=== PATIENT | female | born 1975 | race Caucasian/White ===

== ENCOUNTER 2017-03-27 18:59 | Observation (INO) | payer OTHER ==
[~2017-03-27] VITALS: Ht 165.1 cm; Wt 100.0 kg
--- NOTE | 2017-03-27 21:40 | ED ORDER SUMMARY ---
..... Patient: ANA HERMAN OrderSheet [facility] VisitID: [id number] [address] [place] [address] 41y, F Registration Date/Time: 03/27/2017 ORDER SHEET Weight: 99.7 kg (stated) Allergies: Aspirin GENERAL ORDERS: CBC w Diff Urgent (19:03/27/2017 HSoule per protocol) (Ack 19:38 AMcQuoid ER Tech1) (19:38 AMcQuoid ER Tech1) CMP Urgent (19:03/27/2017 HSoule per protocol) (Ack 19:38 AMcQuoid ER Tech1) (19:38 AMcQuoid ER Tech1) Amylase Urgent (19:03/27/2017 HSoule per protocol) (Ack 19:38 AMcQuoid ER Tech1) (19:38 AMcQuoid ER Tech1) Lipase Urgent (19:03/27/2017 HSoule per protocol) (Ack 19:38 AMcQuoid ER Tech1) (19:38 AMcQuoid ER Tech1) UA-Culture if indicated Urgent (19:22 03/27/2017 HSoule per protocol) (Ack 19:38 AMcQuoid ER Tech1) (21:13 HSoule) Urine Urgent (19:22 03/27/2017 HSoule per protocol) (Ack 19:38 AMcQuoid ER Tech1) (21:13 HSoule) US Abdomen Limited (No) Urgent (20:14 03/27/2017 HBivens A.R.N.P.) (Ack 20:16 AMcQuoid ER Tech1) (21:24 HSoule) CPK Urgent (20:41 03/27/2017 HBivens A.R.N.P.) (21:04 AMcQuoid ER Tech1) Troponin-I Urgent (20:41 03/27/2017 HBivens A.R.N.P.) (21:04 AMcQuoid ER Tech1) MEDICATION ORDERS: IV FLUIDS: IV Saline Lock (19:22 03/27/2017 HSoule per protocol) (19:22 HSoule) Toradol IV 30 mg (NOW) (20:14 03/27/2017 HBivens A.R.N.P.) (Ack 20:17 Nic R.N.) (20:21 HSoule) Zofran IV 4 mg (NOW) (20:14 03/27/2017 HBivens A.R.N.P.) (Ack 20:17 Nic R.N.) (20:21 HSoule) Dilaudid IV 1 mg (HIGH ALERT MEDICATION, NOW) (21:05 03/27/2017 HBivens A.R.N.P.) (Ack 21:13 HSoule) (Hold 21:31 HSoule) (Cancelled: Patient Refusal3:56 HSoule) ORDER SHEET NOTES: [Electronically signed by Bradley Brush R.N. (04:08 03/28/2017)] [Electronically signed by Johana DwyerRIvanN.PIvan (11:13 03/30/2017)] [Electronically locked/signed by Bradley Brush R.N. (04:08 03/28/2017)]
--- NOTE | 2017-03-27 21:40 | ED ORDER SUMMARY ---
..... Patient: ANA HERMAN OrderSheet [facility] VisitID: [id number] [address] [place] [address] 41y, F Registration Date/Time: 03/27/2017 ORDER SHEET Weight: 99.7 kg (stated) Allergies: Aspirin GENERAL ORDERS: CBC w Diff Urgent (19:03/27/2017 HSoule per protocol) (Ack 19:38 AMcQuoid ER Tech1) (19:38 AMcQuoid ER Tech1) CMP Urgent (19:03/27/2017 HSoule per protocol) (Ack 19:38 AMcQuoid ER Tech1) (19:38 AMcQuoid ER Tech1) Amylase Urgent (19:03/27/2017 HSoule per protocol) (Ack 19:38 AMcQuoid ER Tech1) (19:38 AMcQuoid ER Tech1) Lipase Urgent (19:03/27/2017 HSoule per protocol) (Ack 19:38 AMcQuoid ER Tech1) (19:38 AMcQuoid ER Tech1) UA-Culture if indicated Urgent (19:22 03/27/2017 HSoule per protocol) (Ack 19:38 AMcQuoid ER Tech1) (21:13 HSoule) Urine Urgent (19:22 03/27/2017 HSoule per protocol) (Ack 19:38 AMcQuoid ER Tech1) (21:13 HSoule) US Abdomen Limited (No) Urgent (20:14 03/27/2017 HBivens A.R.N.P.) (Ack 20:16 AMcQuoid ER Tech1) (21:24 HSoule) CPK Urgent (20:41 03/27/2017 HBivens A.R.N.P.) (21:04 AMcQuoid ER Tech1) Troponin-I Urgent (20:41 03/27/2017 HBivens A.R.N.P.) (21:04 AMcQuoid ER Tech1) MEDICATION ORDERS: IV FLUIDS: IV Saline Lock (19:22 03/27/2017 HSoule per protocol) (19:22 HSoule) Toradol IV 30 mg (NOW) (20:14 03/27/2017 HBivens A.R.N.P.) (Ack 20:17 Nic R.N.) (20:21 HSoule) Zofran IV 4 mg (NOW) (20:14 03/27/2017 HBivens A.R.N.P.) (Ack 20:17 Nic R.N.) (20:21 HSoule) Dilaudid IV 1 mg (HIGH ALERT MEDICATION, NOW) (21:05 03/27/2017 HBivens A.R.N.P.) (Ack 21:13 HSoule) (Hold 21:31 HSoule) (Cancelled: Patient Refusal3:56 HSoule) ORDER SHEET NOTES: [Electronically signed by Bradley Brush R.N. (04:08 03/28/2017)] [Electronically signed by Johana DwyerRIvanN.PIvan (11:13 03/30/2017)] [Electronically locked/signed by Bradley Brush R.N. (04:08 03/28/2017)]
--- NOTE | 2017-03-27 21:40 | ED CLINICAL REPORT ---
Clinical Report - Physicians/Mid Levels [facility] [address] [place] [address] 03/27/2017 19:02 Patient: ANA HERMAN Time Seen: 20:07; initial patient contact, initial documentation, patient care assumed. Arrived- By private vehicle. Historian- patient. HISTORY OF PRESENT ILLNESS Chief Complaint: ABDOMINAL PAIN. At its maximum, severity described as severe. When seen in the E.D., severity described as severe. Modifying factors. Not worsened by anything. Not relieved by anything. 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 The patient has had nausea. No loss of appetite, vomiting or diarrhea. No recent travel. Similar symptoms previously: Frequently, milder. ( x3 episodes this month). Recent medical care: Not recently seen/assessed. REVIEW OF SYSTEMS No constipation, black stools, hematemesis, difficulty with urination or pain with urination. No urinary frequency, bloody stools, fever, chest pain or difficulty breathing. Denies current . All systems otherwise negative, except as recorded above. PAST HISTORY Negative. SOCIAL HISTORY Never smoker. No alcohol use or drug use. No recent travel. Is a local resident. FAMILY HISTORY Negative. ADDITIONAL NOTES The nursing notes have been reviewed with agreement regarding the chief complaint, HPI, ROS, PMH and patient medications and allergies. PHYSICAL EXAM Vital Signs: 03/27/2017 19:14 BP: 165/87. HR: 70. RR: 20. O2 saturation: 97%. Temp: 97.8 F. Pain level now: 7/10. Have been reviewed as normal and appear to be correct. Appearance: Alert. Oriented X3. No acute distress. Eyes: Pupils equal, round and reactive to light. Eyes normal inspection. Neck: Normal inspection. Neck supple. CVS: Normal heart rate and rhythm. Heart sounds normal. Pulses normal. Respiratory: No respiratory distress. Breath sounds normal. Chest nontender. Abdomen: Soft. Moderate tenderness in the right upper quadrant and epigastric area. Bowel sounds normal. No organomegaly. No mass. Tenderness present. Back: Normal inspection. Skin: Skin warm and dry. Normal skin color. No rash. Normal skin turgor. Extremities: Extremities exhibit normal ROM. No lower extremity edema. Neuro: Oriented X 3. No motor deficit. No sensory deficit. LABS, X-RAYS, AND EKG EKG: EKG time: (2037). No acute process. No acute ischemia. Normal EKG. Narrow-complex bradycardia (51). Sinus bradycardia. Interpretation time: 2039. Laboratory Tests: UA-Culture if indicated: (VIBHA: 03/27/2017 20:00) ( [facility] 03/27/2017 20:36) Final results Test Result Flag Units (Reference) URINE COLOR YELLOW URINE APPEARANCE CLEAR URINE GLUCOSE NEGATIVE (NEGATIVE) URINE BILIRUBIN NEGATIVE (NEGATIVE) URINE KETONE NEGATIVE (NEGATIVE) URINE SPECIFIC GRAVITY 1.025 (1.010-1.030) URINE PH 6.0 (5.0-8.0) URINE PROTEIN NEGATIVE (NEGATIVE) URINE UROBILINOGEN 0.2 EU/dL (0.2-1.0) URINE NITRITE NEGATIVE (NEGATIVE) URINE BLOOD TRACE-INTACT (NEGATIVE) URINE LEUK ESTERASE NEGATIVE (NEGATIVE) URINE RBC RARE rbc/hpf (0-1) URINE WBC 1-3 wbc/hpf (0-1) URINE EPITHELIAL CELLS 3-5 EPI/hpf (0-5) URINE BACTERIA FEW (1+) (NONE SEEN) URINE COMMENT CULT NOT INDICATED 1+ MUCUSURINE CULTURES ARE SET-UP BASED ON THE FOLLOWING CRITERIA:POSITIVE NITRITEPOSITIVE LEUKOCYTE ESTERASEGREATER THAN 10 WHITE BLOOD CELLSMODERATE (2+) OR GREATER BACTERIA Urine: (VIBHA: 03/27/2017 20:00) ( [facility] 03/27/2017 20:17) Final results Test Result Flag Units (Reference) URINE NEGATIVE CBC w Diff: (VIBHA: 03/27/2017 19:22) ( [facility] 03/27/2017 19:43) Final results Test Result Flag Units (Reference) WHITE BLOOD COUNT 5.9 K/uL (4.5-11.5) RED BLOOD COUNT 4.25 M/uL (4.00-5.20) HEMOGLOBIN 10.8 L gm/dL (12.0-16.0) HEMATOCRIT 32.9 L % (36.0-46.0) MEAN CELL VOLUME 77 L fL (80-100) MEAN CORPUSCULAR HGB 25 L pg (26-34) MEAN CORPUSCULAR HGB CONC 33 g/dL (31-37) RED CELL DISTRIBUTION WIDTH 17.3 H % (11.6-14.8) PLATELET COUNT 339 K/uL (150-400) NEUTROPHIL % 62.4 % (50-75) LYMPH % 27.8 % (25-40) MONO % 7.5 % (3-14) EOSINOPHIL % 1.8 % (0-4) BASOPHIL % 0.5 % (0-2) CMP: (VIBHA: 03/27/2017 19:22) ( MsgRcvd 03/27/2017 20:12) Final results Test Result Flag Units (Reference) GLUCOSE 115 H mg/dL (70-110) BUN 15 mg/dL (7-18) CREATININE 1.1 mg/dL (0.6-1.3) Estimated GFR 57.62 mL/min Estimated GFR- >60 mL/min Note: Persistent reduction over 3 months in eGFR<60 mL/min/1.73 m2 defines CKD. Patients with eGFR values>=60 mL/min/1.73 m2 may also have CKD if evidence ofpersistent proteinuria. Additional information may be foundat www.kidney.org. SODIUM 145 mmol/L (136-145) POTASSIUM 3.5 mmol/L (3.5-5.1) CHLORIDE 106 mmol/L (98-107) CARBON DIOXIDE 26 mmol/L (21-32) CALCIUM 8.7 mg/dL (8.5-10.1) TOTAL PROTEIN 7.3 g/dL (6.4-8.2) ALBUMIN 3.5 g/dL (3.3-5.0) BILIRUBIN, TOTAL 0.3 mg/dL (0.0-1.0) ALKALINE PHOSPHATASE 63 U/L (46-116) AST (SGOT) 16 U/L (15-37) ALT (SGPT) 22 U/L (12-78) LIPASE 165 U/L (73-393) AMYLASE 50 U/L (25-115) . PROGRESS AND PROCEDURES Course of Care: 20:40 03/27/17. nurse reporting when she gave zofran, the pt's heart rate decreased so she had tech do ekg. Discussed case with on-call health care provider, ([address] Porras, surgeon). Agreed upon treatment plan and decision to admit. Health care provider will see patient in hospital. Differential Diagnosis: I considered gastritis, gastroenteritis, peptic ulcer disease, gastroesophageal reflux disease, diverticulitis, colon cancer, ulcerative colitis, biliary colic, cholecystitis, cholelithiasis, hepatitis, pancreatitis, common bile duct obstruction, urinary tract infection, ureterolithiasis and viral syndrome as a possible cause of abdominal pain in this patient. This is a partial list of diagnoses considered. Above considerations are based on history, physical exam, reassessment, laboratory data and other information. Differential diagnosis was discussed with patient. Disposition: Condition: good and stable. CLINICAL IMPRESSION Acute right upper quadrant abdominal pain. Cholelithiasis with acute cholecystitis. No obstruction. (Electronically signed by Johana Dwyer A.R.N.P. 03/30/2017 11:13)
--- NOTE | 2017-03-27 21:40 | ED NURSING NOTES ---
Clinical Report - Nurses [facility] [address] [place] [address] 03/27/2017 19:02 Patient: ANA HERMAN TRIAGE Triage time 19:14 Mar 27 2017. Acuity: LEVEL 3. Chief Complaint: ABDOMINAL PAIN and NAUSEA. 19:18 03/27/17. SEPSIS SCREEN: Sepsis Screen: negative. Negative (no infection suspected/documented). TUSHAR COMA SCORE: Tushar Coma Scale: 15- eyes open spontaneously (4); best verbal response- oriented x 4 (5); best motor response- obeys commands (6). --19:18 Nilda Morgan 19:14 03/27/17. BP: 165/87. HR: 70. RR: 20. O2 saturation: 97% on room air. Temp: 97.8 F (oral). Pain level now: 10. --19:18 Nilda Morgan. Weight: 99.7 kg stated. Height/Length: 65 inches Per Patient. BMI: 36.6. --19:18 Nilda Morgan. Medications None. --19:17 Nilda Morgan. Allergies Aspirin.(hives) --19:17 Nilda Morgan. History Arrived by private vehicle. Historian: patient. Unaccompanied. Primary physician ( [place]). This started today. This is a recurrent problem. ( Patient reports onset of right upper quadrant pain three hours ago. She states she has had "attacks" over the past few months. She). PAST MEDICAL HX: Immunizations: up-to-date. Last normal menstrual period- This . SOCIAL HX: Never smoker. No alcohol use or drug use. No recent travel. No infectious disease exposure. No known contact with a sick individual. ABUSE ASSESSMENT: No report of abuse. FALL RISK ASSESSMENT: Fall risk assessment completed. No fall risk identified. NUTRITIONAL RISK ASSESSMENT: The nutritional risk assessment revealed no deficiencies. FUNCTIONAL ASSESSMENT: Functional assessment: no impairments noted. LEARNING NEEDS ASSESSMENT: The learning needs assessment revealed no barriers. SKIN INTEGRITY ASSESSMENT: Skin integrity risk assessment completed. No skin integrity risk identified. --19:18 Nilda Morgan. PROBLEMS: no known problems. ADDITIONAL SURGERIES: no known surgeries. Interventions ID band on patient. To treatment room. --: Nilda Morgan. PHYSICAL ASSESSMENT :03/27/17. Patient gowned. GENERAL / NEURO / PSYCH: Alert. Oriented X 4. Appears in pain. HEENT: Mucous membranes are pink. RESPIRATORY: Respirations not labored. CVS: Normal sinus rhythm noted. GI / : Abdomen soft. Abdominal tenderness in the upper abdomen and right upper quadrant. SKIN: Skin is warm and dry. --19: Nilda Morgan. NURSING PROGRESS NOTES :03/27/17. Pulse oximeter and NIBP monitor placed on patient; monitor alarms on. Patient gowned. Reassurance given to the patient. Two patient identifiers checked. Call light placed in reach. Side rails up x 1. Bed placed in lowest position. Brakes of bed on. Patient ready for evaluation- chart flagged and ED physician notified. --19: Nilda Morgan 1903/27/2017 Site #1 started via IV in the left antecubital space with an 20g angiocath; one attempt. Blood drawn: rainbow set. Labeled in the presence of the patient and sent to the lab. Saline lock flushed with 10 mL saline. --: Nilda Morgan Patient ID band checked for patient name and birthdate: patient confirmed. Instructions provided to collect clean catch urine and patient verbalized understanding. Clean catch urine collected with return of yellow-colored clear urine; sample sent to lab for urinalysis and HCG. Specimen labeled in the presence of the patient. --20:00 Nilda Morgan 20:03/27/2017 Zofran (Ondansetron HCl) IVP 4 mg given over 2 minute(s) via site #1. Allergies verified and confirmed 5 rights. IV patency established. IV site checked: no pain, redness, or swelling. IV flushed thoroughly pre- and post-medication administration. IVP given by RN. --20: Nilda Morgan 20:03/27/2017 Toradol IVP 30 mg given over 1 minute(s) via site #1. Allergies verified and confirmed 5 rights. IV patency established. IV site checked: no pain, redness, or swelling. IV flushed thoroughly pre- and post-medication administration. IVP given by RN. --20:21 Nilda Morgan 20:21 03/27/17. BP: 158/76. HR: 65. RR: 20. O2 saturation: 97% on room air. Pain level now: 05/31. --20:21 Nilda Morgan 20:34 03/27/17. HR: 46. Additional comments: Provider notified, patient reports she is not dizzy or light headed. She reports her normal resting HR to be about 70. --20:35 Nilda Morgan EKG time: (20:38 Mar 27 2017). EKG was performed by a tech and shown to the ED physician. --20:35 Nilda Morgan master hearth technician placed on patient; monitor alarms on. --20:40 Nilda Morgan 21:02 03/27/17. BP: 147/73. HR: 53. RR: 20. O2 saturation: 100% on room air. --21:03 Nilda Morgan ( Ultrasound at bedside). --21:13 Nilda Morgan 22:59 03/27/17. BP: 133/65. HR: 60. RR: 20. O2 saturation: 97% on room air. Pain level now: 03/01. --23:00 Nilda Morgan. DISPOSITION / DISCHARGE 23:31 03/27/17. BP: 138/71. HR: 74. RR: 20. O2 saturation: 98% on room air. Pain level now: 03/31. --23:31 Nilda Morgan 23:20 03/27/17. Report was given to a nurse via a phone call. Report included patient's care, treatment, medications, reviewed medication reconcilliation, and condition (including any recent changes or anticipated changes). All questions were answered. Report was acknowledged and care was transferred. (MOISÉS Chand). --04:08 Bradley Brush R.N. 23:31 03/27/2017 Site #[address] upon admission; patent, no pain and no signs of infection or infiltration. Good blood return present. Converted to saline lock and flushed with 10 mL saline; flushes easily. --23:31 Luisa Morganh 23:31 03/27/17. Condition at departure: stable. The goals identified in the patient's plan of care were met. --23:31 Nilda Morgan Admitted to Acute Care (209). Patient's personal items include: shirt, pants, wallet and cell phone; items were transported with the patient. --23:32 Remigio Morgannah. Locked/Released at 03/28/2017 4:08 by Bradley Brush R.NIvan
--- NOTE | 2017-03-27 21:40 | ED CLINICAL REPORT ---
Clinical Report - Physicians/Mid Levels [facility] [address] [place] [address] 03/27/2017 19:02 Patient: ANA HERMAN Time Seen: 20:07; initial patient contact, initial documentation, patient care assumed. Arrived- By private vehicle. Historian- patient. HISTORY OF PRESENT ILLNESS Chief Complaint: ABDOMINAL PAIN. At its maximum, severity described as severe. When seen in the E.D., severity described as severe. Modifying factors. Not worsened by anything. Not relieved by anything. 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 The patient has had nausea. No loss of appetite, vomiting or diarrhea. No recent travel. Similar symptoms previously: Frequently, milder. ( x3 episodes this month). Recent medical care: Not recently seen/assessed. REVIEW OF SYSTEMS No constipation, black stools, hematemesis, difficulty with urination or pain with urination. No urinary frequency, bloody stools, fever, chest pain or difficulty breathing. Denies current . All systems otherwise negative, except as recorded above. PAST HISTORY Negative. SOCIAL HISTORY Never smoker. No alcohol use or drug use. No recent travel. Is a local resident. FAMILY HISTORY Negative. ADDITIONAL NOTES The nursing notes have been reviewed with agreement regarding the chief complaint, HPI, ROS, PMH and patient medications and allergies. PHYSICAL EXAM Vital Signs: 03/27/2017 19:14 BP: 165/87. HR: 70. RR: 20. O2 saturation: 97%. Temp: 97.8 F. Pain level now: 7/10. Have been reviewed as normal and appear to be correct. Appearance: Alert. Oriented X3. No acute distress. Eyes: Pupils equal, round and reactive to light. Eyes normal inspection. Neck: Normal inspection. Neck supple. CVS: Normal heart rate and rhythm. Heart sounds normal. Pulses normal. Respiratory: No respiratory distress. Breath sounds normal. Chest nontender. Abdomen: Soft. Moderate tenderness in the right upper quadrant and epigastric area. Bowel sounds normal. No organomegaly. No mass. Tenderness present. Back: Normal inspection. Skin: Skin warm and dry. Normal skin color. No rash. Normal skin turgor. Extremities: Extremities exhibit normal ROM. No lower extremity edema. Neuro: Oriented X 3. No motor deficit. No sensory deficit. LABS, X-RAYS, AND EKG EKG: EKG time: (2037). No acute process. No acute ischemia. Normal EKG. Narrow-complex bradycardia (51). Sinus bradycardia. Interpretation time: 2039. Laboratory Tests: UA-Culture if indicated: (VIBHA: 03/27/2017 20:00) ( [facility] 03/27/2017 20:36) Final results Test Result Flag Units (Reference) URINE COLOR YELLOW URINE APPEARANCE CLEAR URINE GLUCOSE NEGATIVE (NEGATIVE) URINE BILIRUBIN NEGATIVE (NEGATIVE) URINE KETONE NEGATIVE (NEGATIVE) URINE SPECIFIC GRAVITY 1.025 (1.010-1.030) URINE PH 6.0 (5.0-8.0) URINE PROTEIN NEGATIVE (NEGATIVE) URINE UROBILINOGEN 0.2 EU/dL (0.2-1.0) URINE NITRITE NEGATIVE (NEGATIVE) URINE BLOOD TRACE-INTACT (NEGATIVE) URINE LEUK ESTERASE NEGATIVE (NEGATIVE) URINE RBC RARE rbc/hpf (0-1) URINE WBC 1-3 wbc/hpf (0-1) URINE EPITHELIAL CELLS 3-5 EPI/hpf (0-5) URINE BACTERIA FEW (1+) (NONE SEEN) URINE COMMENT CULT NOT INDICATED 1+ MUCUSURINE CULTURES ARE SET-UP BASED ON THE FOLLOWING CRITERIA:POSITIVE NITRITEPOSITIVE LEUKOCYTE ESTERASEGREATER THAN 10 WHITE BLOOD CELLSMODERATE (2+) OR GREATER BACTERIA Urine: (VIBHA: 03/27/2017 20:00) ( [facility] 03/27/2017 20:17) Final results Test Result Flag Units (Reference) URINE NEGATIVE CBC w Diff: (VIBHA: 03/27/2017 19:22) ( [facility] 03/27/2017 19:43) Final results Test Result Flag Units (Reference) WHITE BLOOD COUNT 5.9 K/uL (4.5-11.5) RED BLOOD COUNT 4.25 M/uL (4.00-5.20) HEMOGLOBIN 10.8 L gm/dL (12.0-16.0) HEMATOCRIT 32.9 L % (36.0-46.0) MEAN CELL VOLUME 77 L fL (80-100) MEAN CORPUSCULAR HGB 25 L pg (26-34) MEAN CORPUSCULAR HGB CONC 33 g/dL (31-37) RED CELL DISTRIBUTION WIDTH 17.3 H % (11.6-14.8) PLATELET COUNT 339 K/uL (150-400) NEUTROPHIL % 62.4 % (50-75) LYMPH % 27.8 % (25-40) MONO % 7.5 % (3-14) EOSINOPHIL % 1.8 % (0-4) BASOPHIL % 0.5 % (0-2) CMP: (VIBHA: 03/27/2017 19:22) ( MsgRcvd 03/27/2017 20:12) Final results Test Result Flag Units (Reference) GLUCOSE 115 H mg/dL (70-110) BUN 15 mg/dL (7-18) CREATININE 1.1 mg/dL (0.6-1.3) Estimated GFR 57.62 mL/min Estimated GFR- >60 mL/min Note: Persistent reduction over 3 months in eGFR<60 mL/min/1.73 m2 defines CKD. Patients with eGFR values>=60 mL/min/1.73 m2 may also have CKD if evidence ofpersistent proteinuria. Additional information may be foundat www.kidney.org. SODIUM 145 mmol/L (136-145) POTASSIUM 3.5 mmol/L (3.5-5.1) CHLORIDE 106 mmol/L (98-107) CARBON DIOXIDE 26 mmol/L (21-32) CALCIUM 8.7 mg/dL (8.5-10.1) TOTAL PROTEIN 7.3 g/dL (6.4-8.2) ALBUMIN 3.5 g/dL (3.3-5.0) BILIRUBIN, TOTAL 0.3 mg/dL (0.0-1.0) ALKALINE PHOSPHATASE 63 U/L (46-116) AST (SGOT) 16 U/L (15-37) ALT (SGPT) 22 U/L (12-78) LIPASE 165 U/L (73-393) AMYLASE 50 U/L (25-115) . PROGRESS AND PROCEDURES Course of Care: 20:40 03/27/17. nurse reporting when she gave zofran, the pt's heart rate decreased so she had tech do ekg. Discussed case with on-call health care provider, ([address] Porras, surgeon). Agreed upon treatment plan and decision to admit. Health care provider will see patient in hospital. Differential Diagnosis: I considered gastritis, gastroenteritis, peptic ulcer disease, gastroesophageal reflux disease, diverticulitis, colon cancer, ulcerative colitis, biliary colic, cholecystitis, cholelithiasis, hepatitis, pancreatitis, common bile duct obstruction, urinary tract infection, ureterolithiasis and viral syndrome as a possible cause of abdominal pain in this patient. This is a partial list of diagnoses considered. Above considerations are based on history, physical exam, reassessment, laboratory data and other information. Differential diagnosis was discussed with patient. Disposition: Condition: good and stable. CLINICAL IMPRESSION Acute right upper quadrant abdominal pain. Cholelithiasis with acute cholecystitis. No obstruction. (Electronically signed by Johana Dwyer A.R.N.P. 03/30/2017 11:13)
--- NOTE | 2017-03-27 23:39 | DIAGNOSTIC IMAGING REPORT ---
PROCEDURE: US ABDOMEN ULTRASOUND-LIMITED INDICATION: RUQ PAIN TECHNIQUE: Novoa scale and color Doppler sonographic images of the abdomen were obtained. COMPARISON: None. FINDINGS: Multiple large mobile gallstones with gallbladder wall thickening (3.4 - 3.8 mm). Normal CBD measures 5 mm. Positive Quintero's sign. Normal liver. Head and body of the pancreas are within normal limits. Pancreatic tail is obscured by bowel gas. Aorta and IVC are patent. Normal hepatopetal flow. Normal right kidney measures 10.4 cm. IMPRESSION: 1. Cholelithiasis with gallbladder wall thickening and positive Quintero's sign suggestive of acute cholecystitis.
[2017-03-27 23:51] VITALS: BP 141/64
[2017-03-28] VITALS (11 sets, daily range): BP systolic 119–165; BP diastolic 54–92
--- NOTE | 2017-03-28 03:01 | NUR ---
PT. ARRIVED TO ROOM 209-A VIA ER STRETCHER AT APPROXIMATELY 2345 AND WAS ACCOMPANIED BY HER , WHO HAS LEFT HOME. PT. IS COOPERATIVE AND PLEASANT WITH CARE. C/O 4/10 ABDOMINAL PAIN, R SIDED UNDER RIB AREA. STATES IT IS AT AN ACCEPTABLE LEVEL AND DECLINES THE NEED FOR PAIN MEDICATION, BUT WILL NOTIFY THIS RN IF IT IS NEEDED. IV FLUIDS INFUSING WITHOUT ISSUES. DENIES NAUSEA. ASSESSMENT COMPLETED. WCTM.
[2017-03-28] MEDS ORDERED: IRON325 MG PO (03:13)
--- NOTE | 2017-03-28 10:15 | NUR ---
DR PALMA HERE TO CONSULT WITH PT. PREOP CHECKLIST DONE. PT DENIES PAIN AT THIS TIME. IV IS PATENT.
--- NOTE | 2017-03-28 10:21 | Consultation Report ---
History Chief Complaint Right upper quadrant abdominal pain History of Present Illness 41-year-old female who presented to the emergency room with approximately 8 hour of right upper quadrant abdominal pain. Pain radiating into her back. Associated with nausea but no vomiting. No diarrhea. No fever or chills. Patient states she did however feel clammy. This is her third attack within the last month. This wound however was the worst. MEDICATION: None PAST MEDICAL/SURGICAL HISTORY: The only hospitalization patient has had this for the of her children. Patient History 1. Cholecystitis, acute with cholelithiasis Social History . One son and 2 daughters alive and well. Patient does not smoke. Patient does not drink alcohol. Patient on occasionally will drink green tea. 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 FAMILY HISTORY: Mother age 72, history of heart disease. Father age 80, health more bouts unknown. 1 brother, one sister both are alive and well. Medications and Allergies Medications See prior dictation Current Medications Sig/Fabio Start time Last Medication Dose Route Stop Time Status Admin Famotidine/Sodium 50 ML Q12HR 03/28 0900 AC 05/07 Chloride IV 0836 Metoclopramide HCl 10 MG Q6HR 03/28 0000 AC / IV 0556 Cefotetan Disodium/ 50 ML Q12HR 03/27 2345 AC 05/07 Dextrose IV 0207 Cefotetan Disodium/ 50 ML .COLOR CONTROL OPERATOR TO OR 03/27 2330 AC Dextrose IV Lactated Ringer's 1,000 ML ASDIRECTED 03/27 2330 AC 05/07 IV 0953 Meperidine HCl 12.5 MG Q1H PRN 03/27 2330 AC IV Meperidine HCl 25 MG Q1H PRN 03/27 2330 AC IV Ondansetron HCl 4 MG Q6H PRN 03/27 2330 AC IV Ondansetron HCl 4 MG Q4H PRN 03/27 2230 CAN IV Allergies Coded Allergies: Aspirin (Severe, 03/28/17) Review of Systems Other AB 0. Menarche age 12. Her first full-term at age 19. Last menstrual period approximately one week ago. Last Pap smear 3 years ago. Last mammogram patient never had one. Patient never had a colonoscopy. Patient denies any history of hepatitis, jaundice, rheumatic fever, heart murmurs requiring antibiotics, bleeding tendencies, or blood transfusions. Remaining 12 point review of systems is negative. Physical Exam Vital Signs / I&Os Vital Signs Date Time Temp Pulse Resp B/P Pulse O2 O2 Flow FiO2 Ox Delivery Rate 03/28 0735 4.0 03/28 0713 99.1 82 17 122/54 93 Room Air 03/28 0324 4.0 03/28 0242 98.1 54 18 119/64 100 Nasal 4.0 Cannula 03/28 0156 4.0 03/27 2351 98.1 66 18 141/64 100 Room Air I&O 03/27 0800 03/27 1600 03/28 0000 Intake Total Output Total Balance General Appearance Alert, Oriented X3, Cooperative, No acute distress HEENT Atraumatic, PERRLA, EOMI, Moist mucous membranes Lungs Clear to auscultation Neck Supple, No JVD, No masses, No thyromegaly, No lymphadenopathy Cardiovascular Regular rate and rhythm Abdomen Normal bowel sounds, Soft, No masses Extremities No cyanosis, No edema Skin warm and dry Neurological No lateralizing signs Psych/Mental Status Mood normal LAB Results Laboratory Tests 03/27 03/27 03/27 03/27 [id number] Chemistry Plasma Sodium (136 - 145 mmol/L) 145 Plasma Potassium (3.5 - 5.1 mmol/L) 3.5 Plasma Chloride (98 - 107 mmol/L) 106 CO2 (Enzymatic) (21 - 32 mmol/L) 26 BUN (7 - 18 mg/dL) 15 Creatinine (0.6 - 1.3 mg/dL) 1.1 Est GFR ( Amer) (mL/min) >60 Est GFR (Non-Af Amer) (mL/min) 57.62 Glucose (70 - 110 mg/dL) 115 Plasma Calcium (8.5 - 10.1 mg/dL) 8.7 Total Bilirubin (0.0 - 1.0 mg/dL) 0.3 AST (15 - 37 U/L) 16 ALT (12 - 78 U/L) 22 Alkaline Phosphatase (46 - 116 U/L) 63 Creatine Kinase (24 - 260 U/L) 78 Troponin (0.00 - 1.5 ng/mL) <0.05 Total Protein (6.4 - 8.2 g/dL) 7.3 Albumin (3.3 - 5.0 g/dL) 3.5 Amylase (25 - 115 U/L) 50 Lipase (73 - 393 U/L) 165 Hematology WBC (4.5 - 11.5 K/uL) 5.9 RBC (4.00 - 5.20 M/uL) 4.25 Hgb (12.0 - 16.0 gm/dL) 10.8 Hct (36.0 - 46.0 %) 32.9 MCV (80 - 100 fL) 77 MCH (26 - 34 pg) 25 RDW (11.6 - 14.8 %) 17.3 Neut % (Auto) (50 - 75 %) 62.4 Lymph % (Auto) (25 - 40 %) 27.8 [place] % (Auto) (3 - 14 %) 7.5 Eos % (Auto) (0 - 4 %) 1.8 Baso % (Auto) (0 - 2 %) 0.5 Plt Count, EDTA (150 - 400 K/uL) 339 PUBS MCHC (31 - 37 g/dL) 33 Urines Urine Color YELLOW Urine Appearance CLEAR Urine pH (5.0 - 8.0) 6.0 Ur Specific [place] (1.010 - 1.030) 1.025 Urine Protein (NEGATIVE) NEGATIVE Urine Ketones (NEGATIVE) NEGATIVE Urine Blood (NEGATIVE) TRACE-INTACT Urine Nitrite (NEGATIVE) NEGATIVE Urine Bilirubin (NEGATIVE) NEGATIVE Urine Urobilinogen (0.2 - 1.0 EU/dL) 0.2 Ur Leukocyte Esterase (NEGATIVE) NEGATIVE Urine RBC (0 - 1 rbc/hpf) RARE Urine WBC (0 - 1 wbc/hpf) 1-3 Ur Epithelial Cells (0 - 5 EPI/hpf) 3-5 Urine Bacteria (NONE SEEN) FEW (1+) Urine Glucose (NEGATIVE) NEGATIVE Urine Test NEGATIVE Urine Comment CULT NOT INDICATED 03/28 05 0600 0644 Chemistry Total Bilirubin (0.0 - 1.0 mg/dL) 0.3 Alkaline Phosphatase (46 - 116 U/L) Cancelled 56 Lipase (73 - 393 U/L) 111 Hematology WBC (4.5 - 11.5 K/uL) 5.8 RBC (4.00 - 5.20 M/uL) 3.88 Hgb (12.0 - 16.0 gm/dL) 9.9 Hct (36.0 - 46.0 %) 30.2 MCV (80 - 100 fL) 78 MCH (26 - 34 pg) 25 RDW (11.6 - 14.8 %) 17.5 Neut % (Auto) (50 - 75 %) 55.9 Lymph % (Auto) (25 - 40 %) 34.1 [place] % (Auto) (3 - 14 %) 7.4 Eos % (Auto) (0 - 4 %) 1.9 Baso % (Auto) (0 - 2 %) 0.7 Plt Count, EDTA (150 - 400 K/uL) 265 PUBS MCHC (31 - 37 g/dL) 33 Imaging Ultrasound of the abdomen shows patient's gallbladder with multiple gallstones, 3 mm wall thickness. No pericholecystic fluid. Assessment and Plan Problem List 1. Cholecystitis, acute with cholelithiasis Plan The pathophysiology of gallbladder disease has been explained to the patient. Our recommendation is to proceed with laparoscopic cholecystectomy. The procedure has been The patient including complications which are but not exclusive of trocar site infection, hernia, conversion to open procedure, hemorrhage, transfusion, damage to local structures, retained stone, bile leak, damage to major ductal system, pancreatitis, pneumonia and pulmonary embolus. Patient understands and agrees to proceed and we'll schedule her appropriately.
--- NOTE | 2017-03-28 12:40 | Operative Report ---
Operative Report Date of Surgery: 03/28/17 Preoperate Diagnosis: acute cholecystitis, cholelithiasis Postoperative Diagnosis: acute cholecystitis, cholelithiasis Surgeon: Alverto Porras MD Sales Support Administrator Surgeon: none Procedure Performed: Laparoscopic cholecystectomy and fluoroscopic intraoperative cholangiogram with interpretation Anesthesia: Gen. endotracheal Indications: 41-year-old female with acute onset right upper quadrant abdominal pain. 3 prior episodes within the last month of similar symptoms. Liver function studies including total bilirubin now phosphatase and lipase normal. Ultrasound of her gallbladder showed thickened gallbladder wall, multiple gallstones but no pericholecystic fluid. FINDINGS: Thickened edematous gallbladder wall, multiple stones, hydrops of the gallbladder. Normal intraoperative cholangiogram with visualization of the intrahepatic ducts, hepatic duct, common bile duct, free flow of contrast material into the duodenum, no evidence of obstruction or retained stone. Surgical Technique: Patient brought to the operating room and placed in the dorsal supine position. Patient was administered general endotracheal anesthesia by the anesthesiology department. After proper anesthesia taken effect patient's abdomen was prepped using Betadine and draped in a sterile fashion. An infraumbilical incision made in the skin and down through the subcutaneous tissue. A Veress needle was inserted through this site and into the abdominal cavity. After ascertaining the appropriate position with suction irrigation a pneumoperitoneum was obtained using CO2 insufflation to approximate 14 15 mmHg pressure. The varices needle was removed and replaced with 10 mm trocar. The trocar removed leaving the sleeve behind. A laparoscopic video camera was introduced into the abdominal cavity. Under direct visualization a separate 10 mm trocar was placed in subxiphoid region. Two 5 mm trochars were placed in the anterior lateral abdominal wall approximately 3-4 fingerbreadths below the costal margin. Each trocar entered the abdominal cavity under direct visualization. Trochars removed leaving the sleeve behind through which laparoscopic instrumentation was introduced into the abdominal cavity. The aforementioned findings noted. The gallbladder grasped retracted cephalad. Using a combination of blunt dissection and electrocautery were able to circumferentially isolate the cystic duct. A clip was placed at the junction of the neck of the cystic duct and the gallbladder. Small incision made in the anterior surface of the cystic duct. Percutaneous cholangiocatheter was threaded through the anterior abdominal wall into the cystic duct and clipped into position. The fluoroscopic intraoperative cholangiogram was performed.. The aforementioned findings noted, the cholangiogram catheter was retrieved from the cystic duct and the abdominal cavity. The distal cystic duct was clipped in continuity divided. The cystic artery identified clipped continuity divided. The gallbladder was taken down from its bed in a retrograde fashion using electrocautery dissection. When the gallbladder was completely free from its bed, the gallbladder was placed in a sterile specimen container bag and retrieved from the abdominal cavity. The gallbladder specimen was sent to pathology. The gallbladder bed was inspected for hemostasis. The assuring ourselves of proper hemostasis, the right upper quadrant was irrigated copiously with normal saline antibiotic solution and irrigant suctioned out. Approximately 30 cc 0.5% Marcaine with epinephrine were sprayed over the right lobe of of the liver for postop analgesia. The pneumoperitoneum released. All trochars removed and the abdominal cavity. All trocar sites were approximated using 4-0 subcuticular Polysorb interrupted suture. Steri-Strips placed over the wound. Sterile occlusive dressing placed over each site. Patient tolerated procedure well. Patient was extubated and transferred recovery room in stable condition. There were no intraoperative anesthetic outpatient. CONDITION: Stable to postoperative anesthesia recovery room in COMPLICATIONS: None ESTIMATED BLOOD LOSS: None FLUIDS: 300 cc lactate Ringers SPECIMEN: Gallbladder and contents to pathology
--- NOTE | 2017-03-28 13:02 | NUR ---
LE; REC'D FROM OR; SPONT RESP. HOB ELEVATED 30 DEGREES. C/O MILD HEADACHE AND OP SITE DISCOMFORT. MEDS GIVEN WITH GOOD RESULTS.
--- NOTE | 2017-03-28 13:04 | DIAGNOSTIC IMAGING REPORT ---
PROCEDURE: XR INTRAOPERATIVE LAP ALEXANDER INDICATION: LAP ALEXANDER TECHNIQUE: Intraoperative fluoroscopy provided for Dr. Porras performing an intraoperative cholangiogram following cholecystectomy. Total fluoroscopy time 8 seconds. Cumulative dose 3.0 mGy. COMPARISON: Ultrasound 03/27/2017 FINDINGS: A single intraoperative fluoroscopic spot image of the right upper quadrant of the abdomen demonstrates cannulation of the cystic duct stump and opacification of the intrahepatic and extrahepatic biliary tree. There are no filling defects. There is normal passage of contrast into the duodenum. IMPRESSION: 1. Negative intraoperative cholangiogram.
--- NOTE | 2017-03-28 13:18 | NUR ---
PT REPORTS BEING HIGHLY ALLERGIC TO ASA; GIVES HER HIVES. THEREFORE AFTER CONSULTING WITH ANESTHESIA AND PHARMACY, LULY; TORADOL WAS NOT GIVEN. PT REFUSED.
--- NOTE | 2017-03-28 13:45 | NUR ---
RECEIVED PT FROM PACU. SHE HAD EMESIS OF BILE WHILE ATTEMPTING TO SIT UP ON GUERNEY. SHE AMBULATED TO BED. NAUSEA HAS SUBSIDED. O24L N/C INTACT. BTS ARE HYPOACTIVE. TROCHAR SITES ARE DRY AND INTACT. IV IS PATENT TO LAC WITH LR@125CC/HR. PT DENIES PAIN AT THIS TIME. SHE WAS EDUCATED ON INCENTIVE SPIROMETER, AMBULATING Q1 HOUR TILL 22OO AND THEN Q2 DURING NOC, ALSO OOB TO CHAIR WHEN TAKING PO. CLEAR LIQUIDS INITIATED. SHE IS ALERT AND ORIENTED.
--- NOTE | 2017-03-28 15:07 | Progress Note ---
Subjective General Admission History and Physical Examination Patient Name: Rosario Kiser Patient ID: [id number] Admission Date: March 28, 2017 Primary Care Provider: Unknown Attending Physician: Alex Rascon M.D. Admitting Physician: Alex Rascon M.D. Consulting physician: Alverto Porras M.D. Code Status: FULL CODE Room: 209 Status: In patient obs SUBJECTIVE Historian: Patient Reliability: Fair Chief Complaint: Shortness of breath, History of Present Illness: This is a 41-year-old female who presented to the emergency room with approximately 3 hour of right upper quadrant abdominal pain. She reported more right upper quadrant pain. She is also reporting of nausea. Patient had no emesis, diarrhea, no fever or chills. Patient reported feeling clammy. Patient states that she had multiple attacks over the past month. Emergency department CVH examined. Patient found a positive Quintero's sign. Ultrasound of the upper quadrant showed a cholelithiasis with gallbladder wall thickening and a positive Quintero sign. Patient was consulted by general surgery. Patient admitted under General medicine. Patient's findings in the ED here consistent with diagnosis of acute cholecystitis. Patient's admitted under Dr. Alex Rascon. PAST MEDICAL HISTORY Illnesses: Patient has no other medical health history patient is otherwise healthy Allergies: 1. Aspirin Medications: Patient takes no medication Surgery: No prior surgeries Injuries: 1. No significant Hospitalizations: 1. Patient had previous hospitalizations for childbirth, the last of which was 17 years ago. FAMILY HISTORY Parents: 1. Father, 80-year-old estranged father medical history unknown living. 2. Mother, 72, history of heart disease Siblings: 1 brother, one sister both are alive and wel Children: 1. 3 children, 17-21 years old SOCIAL HISTORY 1. Marital Status: 2. Voodoo: Unknown 3. 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 Occupational health exposures: Unknown HABITS 1. Tobacco: None 2. Drugs: None 3. Alcohol: None 4. Caffeine: None HEALTH SUPERVISION Item/Test unknown IMMUNIZATIONS: Unknown ADVANCED DIRECTIVES: 1. Living well: No 2. POLST: No 3. Code Status: FULL CODE 4. Durable Power Calender Feeder Health care: No 5. Donor card: No REVIEW OF SYSTEMS Remarkable for those things stated in the history of present illness and past medical history. Seventeen point review of system completed with the following notable findings: Constitutional Denies: Fever, Chills. Eyes Denies: Vision Change. ENT Denies: Ear Discharge. Respiratory Denies: SOB w/exertion, Wheezing. Cardiovascular Denies: Light-headedness. Gastrointestinal Denies: Abdominal Pain. Genitourinary Denies: Frequency. Physical Exam Vital Signs / I&Os Vital Signs Date Time Temp Pulse Resp B/P Pulse O2 O2 Flow FiO2 Ox Delivery Rate 03/28 1452 98.4 62 16 152/83 100 Nasal 4.0 Cannula 05/07 1420 98.4 55 16 157/85 100 Nasal 4.0 Cannula 05/07 1405 98.4 54 16 156/84 100 Nasal 4.0 Cannula 05/07 1350 65 20 165/82 100 Nasal 4.0 Cannula 05/07 1336 98.4 64 19 160/87 100 Nasal 4.0 Cannula 05/07 1321 98.8 66 19 158/84 100 05/07 1316 98.8 80 16 162/80 100 Nasal 2.0 Cannula 05/ 1310 69 19 162/82 100 05/07 1300 83 19 149/85 100 05/07 1255 75 27 149/85 100 nc 2.0 05/07 1248 69 26 149/84 100 05/07 1243 98.1 94 16 155/80 100 nc 2.0 05/07 1052 98.2 48 20 125/68 100 Room Air 05/07 0735 4.0 05/07 0713 98.2 52 19 124/65 100 Room Air 05/ 0324 4.0 05/07 0242 98.1 54 18 119/64 100 Nasal 4.0 Cannula 05/ 0156 4.0 05/06 2351 98.1 66 18 141/64 100 Room Air I&O / 0800 05/06 1600 05/07 0000 Intake Total Output Total Balance General Appearance Oriented X3, Cooperative, No acute distress HEENT PERRLA, EOMI Lungs Clear to auscultation, Normal air movement Neck Supple, No JVD Cardiovascular Regular rate and rhythm Abdomen No tenderness, Trocar incision sites. Tenderness is noted around the incision sites Extremities No edema, Normal pulses Skin No Rashes Psych/Mental Status Mood normal LAB Results Laboratory Tests 03/27 03/27 03/27 03/27 [id number] Chemistry Plasma Sodium (136 - 145 mmol/L) 145 Plasma Potassium (3.5 - 5.1 mmol/L) 3.5 Plasma Chloride (98 - 107 mmol/L) 106 CO2 (Enzymatic) (21 - 32 mmol/L) 26 BUN (7 - 18 mg/dL) 15 Creatinine (0.6 - 1.3 mg/dL) 1.1 Est GFR ( Amer) (mL/min) >60 Est GFR (Non-Af Amer) (mL/min) 57.62 Glucose (70 - 110 mg/dL) 115 Plasma Calcium (8.5 - 10.1 mg/dL) 8.7 Total Bilirubin (0.0 - 1.0 mg/dL) 0.3 AST (15 - 37 U/L) 16 ALT (12 - 78 U/L) 22 Alkaline Phosphatase (46 - 116 U/L) 63 Creatine Kinase (24 - 260 U/L) 78 Troponin (0.00 - 1.5 ng/mL) <0.05 Total Protein (6.4 - 8.2 g/dL) 7.3 Albumin (3.3 - 5.0 g/dL) 3.5 Amylase (25 - 115 U/L) 50 Lipase (73 - 393 U/L) 165 Hematology WBC (4.5 - 11.5 K/uL) 5.9 RBC (4.00 - 5.20 M/uL) 4.25 Hgb (12.0 - 16.0 gm/dL) 10.8 Hct (36.0 - 46.0 %) 32.9 MCV (80 - 100 fL) 77 MCH (26 - 34 pg) 25 RDW (11.6 - 14.8 %) 17.3 Neut % (Auto) (50 - 75 %) 62.4 Lymph % (Auto) (25 - 40 %) 27.8 [place] % (Auto) (3 - 14 %) 7.5 Eos % (Auto) (0 - 4 %) 1.8 Baso % (Auto) (0 - 2 %) 0.5 Plt Count, EDTA (150 - 400 K/uL) 339 PUBS MCHC (31 - 37 g/dL) 33 Urines Urine Color YELLOW Urine Appearance CLEAR Urine pH (5.0 - 8.0) 6.0 Ur Specific [place] (1.010 - 1.030) 1.025 Urine Protein (NEGATIVE) NEGATIVE Urine Ketones (NEGATIVE) NEGATIVE Urine Blood (NEGATIVE) TRACE-INTACT Urine Nitrite (NEGATIVE) NEGATIVE Urine Bilirubin (NEGATIVE) NEGATIVE Urine Urobilinogen (0.2 - 1.0 EU/dL) 0.2 Ur Leukocyte Esterase (NEGATIVE) NEGATIVE Urine RBC (0 - 1 rbc/hpf) RARE Urine WBC (0 - 1 wbc/hpf) 1-3 Ur Epithelial Cells (0 - 5 EPI/hpf) 3-5 Urine Bacteria (NONE SEEN) FEW (1+) Urine Glucose (NEGATIVE) NEGATIVE Urine Test NEGATIVE Urine Comment CULT NOT INDICATED 03/28 03/28 0600 0644 Chemistry Total Bilirubin (0.0 - 1.0 mg/dL) 0.3 Alkaline Phosphatase (46 - 116 U/L) Cancelled 56 Lipase (73 - 393 U/L) 111 Hematology WBC (4.5 - 11.5 K/uL) 5.8 RBC (4.00 - 5.20 M/uL) 3.88 Hgb (12.0 - 16.0 gm/dL) 9.9 Hct (36.0 - 46.0 %) 30.2 MCV (80 - 100 fL) 78 MCH (26 - 34 pg) 25 RDW (11.6 - 14.8 %) 17.5 Neut % (Auto) (50 - 75 %) 55.9 Lymph % (Auto) (25 - 40 %) 34.1 [place] % (Auto) (3 - 14 %) 7.4 Eos % (Auto) (0 - 4 %) 1.9 Baso % (Auto) (0 - 2 %) 0.7 Plt Count, EDTA (150 - 400 K/uL) 265 PUBS MCHC (31 - 37 g/dL) 33 Assessment and Plan Problem List 1. Abdominal pain Plan Patient is admitted under hospitalist service. Patient is admitted for abdominal pain, acute cholecystitis associated nausea. Normal routine nursing contacts IV fluids. Repeat labs in the a.m. Consulting general surgery. Address need for a cholecystectomy. 2. Nausea Plan Nausea associated with acute illness. Appropriate antinausea such as ondansetron. Pain control. Introduce by mouth slowly. 3. Cholecystitis, acute with cholelithiasis Plan Consulting surgery; image showing thickened gallbladder freeman. Patient was seen us. Cholecystectomy. Patient is doing well without complications related to the surgical procedure. Patient has sent tenderness over the incision site. Diabetes, followed by general surgery and will be introduced slowly. E&M Codes Rounding: Obsv-Comp/Moderate/[id number]
--- NOTE | 2017-03-28 16:14 | NUR ---
PT HAS BEEN OOB AND AMBULATING IN HALLWAY Q 1HOUR AND IS TOLERATING IT WELL. SHE STATES SHE HAS MILD PAIN. SHE IS TOLERATING CLEAR LIQUIDS. IV IS PATENT. USING INCENTIVE SPIROMETER UPTO 2500 CC.
--- NOTE | 2017-03-28 20:30 | NUR ---
Patient is keen to mobilise around the cao and confirms that she does not need any pain nor antinausea meds. Abdo dressings appear dry and intact. Continues on clear liquids.
[2017-03-29 02:16] VITALS: BP 149/73
[2017-03-29] MEDS ORDERED: HYCET1 ML PO (06:00)
--- NOTE | 2017-03-29 06:00 | Progress Note ---
Subjective General 41-year-old female postop day #1 laparoscopic cholecystectomy. Asymptomatic. Ambulatory. Tolerating by mouth. Physical Exam Vital Signs / I&Os Vital Signs Date Time Temp Pulse Resp B/P Pulse O2 O2 Flow FiO2 Ox Delivery Rate 03/28 1316 98.8 80 16 162/80 100 Nasal 2.0 Cannula / 1310 69 19 162/82 100 05/ 1300 83 19 149/85 100 05/ 1255 75 27 149/85 100 nc 2.0 / 1248 69 26 149/84 100 / 1243 98.1 94 16 155/80 100 nc 2.0 / 1052 98.2 48 20 125/68 100 Room Air 03/28 0735 4.0 03/28 0713 98.2 52 19 124/65 100 Room Air I&O 03/28 0800 / 1600 03/29 0000 Intake Total 751 341 3442 Output Total 0 1350 Balance 300 350 589 General Appearance Alert, Oriented X3, Cooperative, No acute distress Lungs Clear to auscultation Cardiovascular Regular rate and rhythm Abdomen Normal bowel sounds, trocar site dressings dry and intact Skin no peripheral cyanosis Neurological No lateralizing signs Psych/Mental Status Mood normal Assessment and Plan Problem List 1. Cholecystitis, acute with cholelithiasis Plan Postop day #1 status post arthroscopic omentectomy. Stable for discharge. We' ll discharge home today. Follow up later this week. Wound care instructions given. Medications Hycet elixir 1 tablespoon every 6 hours when necessary pain.
--- NOTE | 2017-03-29 06:02 | Provider's Discharge Care Plan ---
Problem, Goal, Plan Problem List 1. Status post laparoscopic cholecystectomy Goals: Improve disease control, Therapeutic intervention Instructions: Follow up as directed, Take meds as directed
--- NOTE | 2017-03-29 06:02 | Provider's Discharge Care Plan ---
Problem, Goal, Plan Problem List 1. Status post laparoscopic cholecystectomy Goals: Improve disease control, Therapeutic intervention Instructions: Follow up as directed, Take meds as directed
[2017-03-29 06:15] VITALS: BP 158/85
--- NOTE | 2017-03-29 07:12 | Progress Note ---
Subjective General 41-year-old female who presented to the emergency room with approximately 3 hour of right upper quadrant abdominal pain. She reported more right upper quadrant pain. Patient states that she had multiple attacks over the past month. Emergency department CVH examined. Patient found a positive Quintero's sign. Ultrasound of the upper quadrant showed a cholelithiasis with gallbladder wall thickening and a positive Quintero sign. Patient was consulted by general surgery. Patient admitted under General medicine. Patient's findings in the ED here consistent with diagnosis of acute cholecystitis. Patient's admitted under Dr. Alex Rascon. Subjective Patient has minor complaints of incisional pain this morning. Patient is not complaining of the cramps. Patient is able to get up and walk. Patient is eating and drinking well. Patient is ready for discharge home. Requests Discharged home Physical Exam Vital Signs / I&Os Vital Signs Date Time Temp Pulse Resp B/P Pulse O2 O2 Flow FiO2 Ox Delivery Rate 03/29 0615 98.1 99 18 158/85 66 Room Air 05/08 0216 97.5 68 18 149/73 95 Room Air 05/07 2226 97.9 50 18 161/78 100 Room Air 05/07 1852 97.9 66 16 149/92 99 Room Air 05/07 1519 97.9 64 16 158/80 100 Room Air 05/07 1452 98.4 62 16 152/83 100 Nasal 4.0 Cannula 05/07 1420 98.4 55 16 157/85 100 Nasal 4.0 Cannula 05/07 1405 98.4 54 16 156/84 100 Nasal 4.0 Cannula 05/07 1350 65 20 165/82 100 Nasal 4.0 Cannula 05/07 1336 98.4 64 19 160/87 100 Nasal 4.0 Cannula 05/07 1321 98.8 66 19 158/84 100 05/07 1316 98.8 80 16 162/80 100 Nasal 2.0 Cannula 05/07 1310 69 19 162/82 100 05/07 1300 83 19 149/85 100 05/07 1255 75 27 149/85 100 nc 2.0 05/07 1248 69 26 149/84 100 05/07 1243 98.1 94 16 155/80 100 nc 2.0 05/07 1052 98.2 48 20 125/68 100 Room Air 05/07 0735 4.0 05/07 0713 98.2 52 19 124/65 100 Room Air I&O 03/28 0800 05/07 1600 05/ 0000 Intake Total 549 744 5308 Output Total 0 1350 Balance 300 350 589 General Appearance Oriented X3, Cooperative HEENT EOMI Lungs Clear to auscultation Neck Supple Cardiovascular Regular rate and rhythm Psych/Mental Status Mental status normal LAB Results Laboratory Tests 03/29 0500 Chemistry Plasma Sodium Cancelled Plasma Potassium Cancelled Plasma Chloride Cancelled CO2 (Enzymatic) Cancelled BUN Cancelled Creatinine Cancelled Est GFR ( Amer) Cancelled Est GFR (Non-Af Amer) Cancelled Glucose Cancelled Plasma Calcium Cancelled Plasma Magnesium Cancelled Total Bilirubin Cancelled AST Cancelled ALT Cancelled Alkaline Phosphatase Cancelled Total Protein Cancelled Albumin Cancelled Hematology WBC Cancelled RBC Cancelled Hgb Cancelled Hct Cancelled MCV Cancelled MCH Cancelled RDW Cancelled Plt Count, EDTA Cancelled PUBS MCHC Cancelled Assessment and Plan Problem List 1. Abdominal pain Plan Abdominal pain related to the cholecystitis has resolved. Persistent incisional pain. Patient has appropriate pain control for discharge. 2. Nausea Plan Nausea is resolved. She has instruction to return to primary care worsening. 3. Cholecystitis, acute with cholelithiasis Status Resolved Plan Cholecystectomy performed. No complications. Patient is up walking now and ready for discharge home. Current status: Stable Anticipated discharge date: Anticipated discharge in 03/29/17 days Anticipated discharge placement: Home with home care Patient care time: Time spent in chart review, patient interview, physical exam, CPOE, and care documentation: 25 minutes Visit to patient today: 1 Complexity of care: Mild Initial patient evaluation: Emergency department consultation General surgery DVT prophylaxis: mechanical E&M Codes Rounding: Obsv-Comp/Moderate/[id number] Discharge: Observation - All/[id number]
--- NOTE | 2017-03-29 10:35 | NUR ---
DISCHARGE INSTRUCTIONS REVIEWED WITH PT. ALL QUESTIONS ANSWERED. PT HAS BEEN AMBULATING WELL AND HAS DENIED NEED FOR PAIN MEDS. NO C/O NAUSEA. DISCHARGED TO HOME WITH STAFF ESCORT.
--- NOTE | 2017-03-30 11:13 | ED MED RECONCILIATION SUMMARY ---
Patient: ANA HERMAN Medication Reconciliation Report [facility] VisitID: [id number] [address] [place] [address] 41y, F Registration Date/Time: 03/27/2017 Weight: 99.7 kg Height/Length: 65 in. BMI: 36.6 ALLERGIES: Aspirin The patient's Home Medications are listed below: NONE. The source(s) of the original Home Medication information: Not obtained. The following Medications were given to the patient in the Emergency Department: Zofran [IVP] IVP 4 mg, administered: 03/27/2017 8:21:00 PM Toradol [IVP] IVP 30 mg, administered: 03/27/2017 8:21:00 PM The following Medications were prescribed to the patient: None.
--- NOTE | 2017-03-30 11:13 | ED MAR SUMMARY ---
..... Medication Administration Record [facility] [address] [place] [address] Patient: ANA HERMAN Visit ID: [id number] 41y, F Weight: 99.7 kg Height/Length: 65 in BMI: 36.6 ALLERGIES: Aspirin Given 20:03/27/2017 Nilda Morgan, Medication Administered: TORADOL [IVP], Dose: 30 mg IVP over 1 minute(s), Site: #1 left AC. Medication Ordered: Toradol IV 30 mg (NOW). Given 20:03/27/2017 Nilda Morgan, Medication Administered: ZOFRAN [IVP] (ONDANSETRON HCL), Dose: 4 mg IVP over 2 minute(s), Site: #1 left AC. Medication Ordered: Zofran IV 4 mg (NOW).
--- NOTE | 2017-03-30 11:13 | ED DISCHARGE INSTRUCTIONS ---
Patient: ANA HERMAN General Instructions [facility] VisitID: [id number] [address] [place] [address] 41y, F Registration Date/Time: 03/27/2017 Acute right upper quadrant abdominal pain. Cholelithiasis with acute cholecystitis. No obstruction. (Electronically signed by Johana Dwyer A.R.N.P. 03/30/2017 11:13)
--- NOTE | 2017-03-30 11:13 | ED MED RECONCILIATION SUMMARY ---
Patient: ANA HERMAN Medication Reconciliation Report [facility] VisitID: [id number] [address] [place] [address] 41y, F Registration Date/Time: 03/27/2017 Weight: 99.7 kg Height/Length: 65 in. BMI: 36.6 ALLERGIES: Aspirin The patient's Home Medications are listed below: NONE. The source(s) of the original Home Medication information: Not obtained. The following Medications were given to the patient in the Emergency Department: Zofran [IVP] IVP 4 mg, administered: 03/27/2017 8:21:00 PM Toradol [IVP] IVP 30 mg, administered: 03/27/2017 8:21:00 PM The following Medications were prescribed to the patient: None.
--- NOTE | 2017-03-30 11:13 | ED MAR SUMMARY ---
..... Medication Administration Record [facility] [address] [place] [address] Patient: ANA HERMAN Visit ID: [id number] 41y, F Weight: 99.7 kg Height/Length: 65 in BMI: 36.6 ALLERGIES: Aspirin Given 20:03/27/2017 iNlda Morgan, Medication Administered: TORADOL [IVP], Dose: 30 mg IVP over 1 minute(s), Site: #1 left AC. Medication Ordered: Toradol IV 30 mg (NOW). Given 20:03/27/2017 Nilda Morgan, Medication Administered: ZOFRAN [IVP] (ONDANSETRON HCL), Dose: 4 mg IVP over 2 minute(s), Site: #1 left AC. Medication Ordered: Zofran IV 4 mg (NOW).
--- NOTE | 2017-03-30 11:13 | ED DISCHARGE INSTRUCTIONS ---
Patient: ANA HERMAN General Instructions [facility] VisitID: [id number] [address] [place] [address] 41y, F Registration Date/Time: 03/27/2017 Acute right upper quadrant abdominal pain. Cholelithiasis with acute cholecystitis. No obstruction. (Electronically signed by Johana Dwyer A.R.N.P. 03/30/2017 11:13)
== END 2017-03-29 10:00 | disposition home or self-care (01) ==
LOC: ED SRH 18:59 → ACUTE2 SRH 21:42 → TRANS SRH 21:42 → ACUTE2 SRH 23:45
PROVIDERS: Specialist; ADMIT Emergency Medicine
PROC: 0FT44ZZ Resection of Gallbladder, Percutaneous Endoscopic Approach (ICD-10-PCS; principal; 2017-03-28 11:30)
PROC: BF101ZZ Fluoroscopy of Bile Ducts using Low Osmolar Contrast (ICD-10-PCS; principal; 2017-03-28 11:30)
DX: K80.00 Calculus of gallbladder with acute cholecystitis without obstruction (principal); R11.0 Nausea
CPT/HCPCS: 29229; 29230; 50002; 60001; 70002; 80102; 80212; 80248; 80852; 82669; 82794; 82807; 83338; 83339; 83348; 83587; 83937; 83982; 84038; 87203; 90004; 90074; 90100; 90616; 92235; 92520; 92530; 92540; 92610; 93070; 95059